=== PATIENT | female | born 1935 | race Caucasian/White ===

== ENCOUNTER 2017-01-20 15:50 | Inpatient (IN) | payer MEDICARE ==
[2017-01-20 16:46] VITALS: BP 113/66
[2017-01-20] MEDS ORDERED: Magnesium Hydroxide (MOM) 30 mL UDC PO PRN (17:30)
[2017-01-20] MEDS ORDERED: Maalox 30 mL Cup PO PRN (17:30)
--- NOTE | 2017-01-20 21:29 | History & Physical ---
ADMIT DATE: 01/20/2017 CHIEF COMPLAINT: Psychosis. HISTORY OF PRESENT ILLNESS: This is an 81-year-old female who presents to [facility] for inpatient care, was transferred from [facility] ER for change in her behavior noted by family members. The patient has a previous history of anemia, hypertension, hyperlipidemia, hypothyroidism, AFib, and bipolar disorder. The patient currently takes ferrous sulfate 325 once daily, furosemide 20 mg daily, hydrochlorothiazide 25 mg daily, metoprolol tartrate 25 mg twice daily, also pravastatin 20 mg at bedtime, also folic acid 1 tablet daily, aspirin 81 mg daily, and levothyroxine 25 mcg daily. LABORATORY DATA: Initial lab work done in the ER. TSH was 1.6. WBC is 4.2, hemoglobin 8.4, hematocrit 25.7, platelets 180,000. Sodium 134, potassium 4.5, chloride 108, bicarbonate 16, and creatinine 2.0. REVIEW OF SYSTEMS: Unable to obtain due to the patient's current condition. PHYSICAL EXAMINATION: VITAL SIGNS: Temperature 98.9, pulse 84, respirations 19, and blood pressure 124/67. GENERAL: This is a well-developed, well nourished, appears her stated age. HEENT: Normocephalic and atraumatic. Pupils are equal, round, and reactive to light and accommodation. Extraocular muscles are intact. Ears: TMs intact. NECK: Supple. Good range of motion. No thyromegaly and no lymphadenopathy. CARDIOVASCULAR: Regular rate and rhythm. No murmurs, rubs, or clicks. LUNGS: Clear to auscultation. No rales, rhonchi, or wheezing. ABDOMEN: Soft, nontender, and nondistended. Bowel sounds are active in all 4 quadrants. No rebound, tenderness, rigidity, or guarding. EXTREMITIES: No clubbing, cyanosis, or edema. Pedal pulses are intact. ASSESSMENT: 1. Psychosis. 2. Hypertension. 3. Hyperlipidemia. 4. Hypothyroidism. 5. Atrial fibrillation. 6. Bipolar disorder. 7. Anemia. PLAN: We will continue current medications. We will admit the patient to [facility]. JOB# [id number]
[2017-01-21] MEDS: Levothyroxine 0.025 Mg Tab PO SCH (06:47)
[2017-01-21] MEDS: Vitamin B Complex w/Vitamin C Tab PO SCH (08:42)
[2017-01-21] MEDS: Ferrous Sulfate 325 MG TAB PO SCH ×2 (08:43→16:29)
--- NOTE | 2017-01-21 22:28 | Psychosocial Evaluation ---
DATE OF SERVICE: 01/20/2017 IDENTIFICATION: An 81-year-old female brought in on 5150. The patient was brought on hold status. She presented [facility] with delusional statements and paranoia, refusal of care, poor judgment and inability to describe plans of care, placed on a 5150 for continuing care. The patient remains delusional, hostile, easily agitated and has no insight into where she was living, she is a poor historian. PAST PSYCHIATRIC HISTORY: Prior treatment for psychosis. PAST MEDICAL HISTORY: Hypertension, hyperlipidemia, atrial fibrillation, anemia. CURRENT MEDICATIONS: Zyprexa dose is unknown. SOCIAL HISTORY: The patient has unknown place of residence at this time. Reportedly, was living alone. Denies drug or alcohol. MENTAL STATUS EXAMINATION: Alert and oriented to self and place. Speech is minimal. Thought process is confused, a kind of positive paranoid delusions and hallucinations. Mood is dysphoric and anxious. Judgment is extremely poor. DIFFERENTIAL DIAGNOSES: 1.Psychosis, not otherwise specified. 2.Multiple medical. PLAN: To admit to inpatient unit for medication management group therapy, and individual therapy. ESTIMATED LENGTH OF STAY: 7 days. DISCHARGE CRITERIA: Stable meds and adequate discharge plan. JOB# [id number]
[2017-01-22] MEDS: Levothyroxine 0.025 Mg Tab PO SCH (06:30)
--- NOTE | 2017-01-22 08:44 | Progress Notes ---
DATE: 01/21/2017 The patient The patient was seen in the inpatient unit. The patient was started on medications ____ for psychotic features. She has continued to have paranoia, believes people are conspiring against heart rate, people at the hospital and other places are conspiring against her, trying to abuse her. She has been calling police "50 times a day." She has no insight, ____ paranoia. We are going ____ Zyprexa for psychotic features. We will place her on 14-day hold, work with the patient on coping skills, ADLs, and aftercare plan. Work with social worker clinical, placed on 14-day hold, discharge when safe to do so. JOB# [id number]
[2017-01-22] MEDS ORDERED: cloNIDine 0.1 mg/24 hr Tdm TD SCH (08:45)
[2017-01-22] MEDS: Ferrous Sulfate 325 MG TAB PO SCH ×2 (08:51→16:27)
[2017-01-22] MEDS: Vitamin B Complex w/Vitamin C Tab PO SCH (08:56)
[2017-01-22] MEDS ORDERED: Haloperidol Lactate 5 mg/mL 1mL Vial ONE (15:29)
[2017-01-22] MEDS ORDERED: Haloperidol Lactate 5 mg/mL 1mL Vial IM ONE (15:29)
--- NOTE | 2017-01-23 04:22 | Progress Notes ---
DATE: 01/22/2017 PSYCHIATRIC PROGRESS NOTE TIME PATIENT SEEN: 5.00PM SUBJECTIVE: Staff was spoken to. The patient is interviewed. Mood is noted to be irritable. Affect is constricted. The patient's coping skills at this time are noted to be still poor. The patient is reported to have been out of control. The patient has to be given emergency dose of medications for impulsivity. The patient at this time is not able to contract for safety. ASSESSMENT: The patient is still grossly psychotic. PLAN: To continue the patient with the supportive therapy. I encouraged the patient to verbalize the concerns rather than to act out. JOB# [id number] [email or web address]
[2017-01-23] MEDS: Levothyroxine 0.025 Mg Tab PO SCH (06:42)
[2017-01-23] MEDS: Ferrous Sulfate 325 MG TAB PO SCH ×2 (08:54→16:02)
[2017-01-23] MEDS: Vitamin B Complex w/Vitamin C Tab PO SCH (08:54)
[2017-01-24] MEDS: Levothyroxine 0.025 Mg Tab PO SCH (06:32)
--- NOTE | 2017-01-24 08:28 | Progress Notes ---
DATE: 01/23/2017 PSYCHIATRIC PROGRESS NOTE TIME PATIENT SEEN: 11:30 a.m. SUBJECTIVE: Staff was spoken to. Chart is reviewed. The patient continues to be irritable and angry and is stating that "I'm not her psychiatrist and there is no need for her to talk to her." The patient has been very angry and very paranoid, and I am not able to get any information from the patient. The patient has been very reluctant to comply with the treatment at this time. ASSESSMENT: The patient is still psychotic. PLAN: To continue the patient with the current medications. I encouraged the patient to verbalize the concerns rather than to act out. JOB# [id number]
[2017-01-24] MEDS: Ferrous Sulfate 325 MG TAB PO SCH ×2 (09:25→16:39)
[2017-01-24] MEDS: Vitamin B Complex w/Vitamin C Tab PO SCH (09:26)
--- NOTE | 2017-01-25 05:47 | Progress Notes ---
DATE: 01/24/2017 PSYCHIATRIC PROGRESS NOTE TIME PATIENT SEEN: 12:15 p.m. SUBJECTIVE: Staff was spoken to. The patient is interviewed. The patient continues to be very paranoid and constantly, there has been ____ whenever she has been trying to reach her daughters. Insight and judgment are very much impaired. Impulse control is noted to be poor today. The patient has been still noted to be psychotic and hence it is decided to increase the dose on the Zyprexa to 5 mg at bedtime. PLAN: I encouraged the patient to verbalize the concerns rather than to act out. Please note that the patient is not ready to be discharged to a lower level of care yet. JOB# [id number]
[2017-01-25] MEDS: Levothyroxine 0.025 Mg Tab PO SCH (06:39)
[2017-01-25] MEDS: Vitamin B Complex w/Vitamin C Tab PO SCH (10:04)
[2017-01-25] MEDS: Ferrous Sulfate 325 MG TAB PO SCH ×2 (10:04→16:29)
[2017-01-25 10:38] LABS: % BASOPHILS 0.2 % (0.0-2.0); % LYMPHOCYTES 18.1 % (20.0-50.0); % MONOCYTES 11.7 % (2.0-10.0); HEMATOCRIT 25.1 % (35.0-45.0); HEMOGLOBIN 8.5 gm/dL (11.7-16.1); MEAN CELL VOLUME 87.5 fl (81-100); MEAN CORPUSCULAR HEMOGLOBIN 29.6 pg (27.0-31.0); MEAN CORPUSCULAR HGB CONC 33.8 pg (28.0-36.0); MEAN PLATELET VOLUME 8.1 fl; NEUTROPHILE ABSOLUTE 4.3 Th/cmm (1.8-8.0); PLATELET COUNT 187 Th/cmm (150-400); RED BLOOD COUNT 2.87 Mil/cmm (3.80-5.20); RED CELL DISTRIBUTION WIDTH 13.9 % (11.5-20.0); WHITE BLOOD COUNT 6.3 Th/cmm (4.8-10.8)
[2017-01-25 11:05] LABS: ALB/GLOB RATIO 1.3 (1.0-1.8); ALKALINE PHOSPHATASE 79 U/L (34-104); ANION GAP 9.8 (7.0-16.0); BILIRUBIN,TOTAL 0.2 mg/dL (0.3-1.0); BUN - UREA NITROGEN 78 mg/dL (7-25); BUN/CREATININE RATIO 33.9; CALCIUM SERUM 9.9 mg/dL (8.6-10.3); CARBON DIOXIDE 22.8 mEq/L (21.0-31.0); CHLORIDE 108 mEq/L (98-107); CREATININE - SERUM 2.3 mg/dL (0.6-1.2); GLUCOSE 129 mg/dL (70-105); POTASSIUM SERUM 4.6 mEq/L (3.5-5.1); SGOT 27 U/L (13-39); SGPT/ALT 27 U/L (7-52); SODIUM SERUM 136 mEq/L (136-145)
--- NOTE | 2017-01-25 11:09 | Diagnostic Imaging Report ---
Portable chest x-ray History: Cough Allowing for portable technique the heart size is normal. Atherosclerotic calcification seen in the aorta. No focal pulmonary parenchymal processes. No hilar or mediastinal abnormalities. Surgical suture material noted over the mid chest. Impression: 1. No acute abnormalities 2. Atherosclerotic vascular changes 3. Surgical changes
[2017-01-26] MEDS: Levothyroxine 0.025 Mg Tab PO SCH (06:39)
[2017-01-26] MEDS: Vitamin B Complex w/Vitamin C Tab PO SCH (08:16)
[2017-01-26] MEDS: Ferrous Sulfate 325 MG TAB PO SCH ×2 (08:16→16:24)
== END 2017-01-26 16:55 | disposition left against medical advice (07) | DRG 885 ==
LOC: GERO 15:50
PROVIDERS: ADMIT Psychiatry & Neurology Psychiatry; ATTEND Psychiatry & Neurology Psychiatry
DX: F29 Unspecified psychosis not due to a substance or known physiological condition (principal); I48.91 Unspecified atrial fibrillation; D64.9 Anemia, unspecified; I10 Essential (primary) hypertension; E78.5 Hyperlipidemia, unspecified; E03.9 Hypothyroidism, unspecified; F31.9 Bipolar disorder, unspecified; R45.87 Impulsiveness
CPT/HCPCS: 36415-UA; 71010-TC; 80053-TC; 85025-TC; 90899; 93005; J1200; J1630; J2060; Z7610